=== PATIENT | female | born 1960 | race Caucasian/White ===

== ENCOUNTER 2023-09-03 18:40 | Emergency (ER) | payer OTHER ==
[~2023-09-03] VITALS: Ht 162.5 cm; Wt 86.2 kg
[2023-09-03] MEDS ORDERED: methylPREDNISolone sod succ 125 MG VIAL IV ONE (19:00)
[2023-09-03] MEDS ORDERED: Albuterol Sulf/Ipratropium 3 ML VIAL NEB ONE (19:00)
[2023-09-03 19:16] LABS: BASO # 0.1 10*3/uL (0.0-0.1); BASO % 0.7 % (0.0-1.0); EOS # 0.3 10*3/uL (0.0-0.4); EOS % 3.7 % (1.0-4.0); HEMATOCRIT 37.2 % (37.0-47.0); LYMPH % 41.2 % (27.0-41.0); MEAN CELL VOLUME 90.1 fl (81.0-99.0); MEAN CORPUSCULAR HGB 29.1 pg (27.0-31.0); MEAN CORPUSCULAR HGB CONC 32.3 g/dl (33.0-37.0); MEAN PLATELET VOLUME 10.3 fl (9.6-12.3); MONO # 0.9 10*3/uL (0.1-1.0); MONO % 11.6 % (3.0-9.0); NEUT # 3.1 10*3/uL (2.3-7.9); NEUT % 42.8 % (47.0-73.0); PLATELET COUNT AUTOMATED 256 10*3/uL (130-400); RED BLOOD COUNT 4.13 10*6/uL (4.10-5.10); RED CELL DISTRI WIDTH 13.3 % (0-14.5); WHITE BLOOD COUNT 7.3 10*3/uL (4.8-10.8)
[2023-09-03 19:32] LABS: POTASSIUM 4.2 mmol/L (3.4-5.1); TOTAL PROTEIN 7.4 gm/dL (6.0-8.0)
[2023-09-03] MEDS ORDERED: SODIUM CHLORIDE 0.9% 1,000 ML IV ONE (19:50)
[2023-09-03] MEDS ORDERED: AVPAK AZITHROM250 M1 PO (20:45)
[2023-09-03] MEDS ORDERED: PREDNISONE50 MG PO (20:45)
[2023-09-03] MEDS ORDERED: AZITHROMYCIN 250 MG TAB PO ONE (20:45)
== END 2023-09-03 22:21 | disposition home or self-care (01) ==
LOC: ED 18:40
PROVIDERS: Physician Assistant Medical
DX: J44.1 Chronic obstructive pulmonary disease with (acute) exacerbation (principal); Z88.2 Allergy status to sulfonamides; Z88.5 Allergy status to narcotic agent; Z88.8 Allergy status to other drugs, medicaments and biological substances

== ENCOUNTER 2024-04-29 17:08 | Emergency (ER) | payer OTHER ==
[~2024-04-29] VITALS: Ht 162.5 cm; Wt 95.7 kg
[~2024-04-29 17:08] MED LIST: AVPAK AZITHROM250 M1 PO; PREDNISONE50 MG PO
[2024-04-29] MEDS ORDERED: IOHEXOL 300 MG/ML 100 ML VIAL IV ONE (17:45)
[2024-04-29 18:07] LABS: BASO # 0.1 10*3/uL (0.0-0.1); BASO % 0.6 % (0.0-1.0); EOS # 0.2 10*3/uL (0.0-0.4); EOS % 1.6 % (1.0-4.0); HEMATOCRIT 39.7 % (37.0-47.0); MEAN CELL VOLUME 87.3 fl (81.0-99.0); MEAN CORPUSCULAR HGB 28.4 pg (27.0-31.0); MEAN CORPUSCULAR HGB CONC 32.5 g/dl (33.0-37.0); MEAN PLATELET VOLUME 10.8 fl (9.6-12.3); MONO % 10.7 % (3.0-9.0); NEUT # 5.9 10*3/uL (2.3-7.9); NEUT % 63.1 % (47.0-73.0); PLATELET COUNT AUTOMATED 300 10*3/uL (130-400); RED BLOOD COUNT 4.55 10*6/uL (4.10-5.10); WHITE BLOOD COUNT 9.4 10*3/uL (4.8-10.8)
[2024-04-29] MEDS ORDERED: IOHEXOL 300 MG/ML 100 ML VIAL ONE (18:08)
[2024-04-29 18:20] LABS: ACT PARTIAL THROMBO TIME 28.7 SECONDS (20.0-32.1)
[2024-04-29 18:35] LABS: ALKALINE PHOSPHATASE 125 U/L (46-116); BUN 14 mg/dl (9-23); CHLORIDE 105 mmol/L (98-107); POTASSIUM 4.4 mmol/L (3.4-5.1); TOTAL PROTEIN 7.3 gm/dL (6.0-8.0)
[2024-04-29 18:36] LABS: SGPT/ALT < 7 U/L (5-49)
== END 2024-04-29 20:15 | disposition home or self-care (01) ==
LOC: ED 17:08
PROVIDERS: Emergency Medicine
DX: J90 Pleural effusion, not elsewhere classified (principal); I12.9 Hypertensive chronic kidney disease with stage 1 through stage 4 chronic kidney disease, or unspecified chronic kidney disease; N18.31 Chronic kidney disease, stage 3a; Z85.22 Personal history of malignant neoplasm of nasal cavities, middle ear, and accessory sinuses; Z88.2 Allergy status to sulfonamides; Z88.5 Allergy status to narcotic agent; Z88.8 Allergy status to other drugs, medicaments and biological substances; Z79.899 Other long term (current) drug therapy; Z86.711 Personal history of pulmonary embolism

== ENCOUNTER 2024-07-08 00:51 | Emergency (ER) | payer OTHER ==
[~2024-07-08] VITALS: Ht 167.6 cm; Wt 81.6 kg
== END 2024-07-08 02:52 | disposition home or self-care (01) ==
LOC: ED 00:51
DX: J10.1 Influenza due to other identified influenza virus with other respiratory manifestations (principal); Z20.822 Contact with and (suspected) exposure to COVID-19; J90 Pleural effusion, not elsewhere classified; Z88.2 Allergy status to sulfonamides; Z88.5 Allergy status to narcotic agent; Z88.8 Allergy status to other drugs, medicaments and biological substances; Z98.890 Other specified postprocedural states

== ENCOUNTER 2024-08-05 17:41 | Emergency (ER) | payer OTHER ==
[~2024-08-05] VITALS: Ht 162.5 cm; Wt 95.3 kg
[2024-08-05] MEDS ORDERED: SODIUM CHLORIDE 0.9% 1,000 ML IV ONE (19:15)
[2024-08-05] MEDS ORDERED: Ondansetron Hydrochloride 4 MG/2 ML VIAL IV ONE (19:15)
[2024-08-05 19:45] LABS: BASO % 0.1 % (0.0-1.0); EOS % 0.1 % (1.0-4.0); HEMATOCRIT 40.3 % (37.0-47.0); MEAN CELL VOLUME 86.1 fl (81.0-99.0); MEAN CORPUSCULAR HGB 27.4 pg (27.0-31.0); MEAN CORPUSCULAR HGB CONC 31.8 g/dl (33.0-37.0); MONO # 0.9 10*3/uL (0.1-1.0); MONO % 6.3 % (3.0-9.0); NEUT # 11.6 10*3/uL (2.3-7.9); NEUT % 83.5 % (47.0-73.0); PLATELET COUNT AUTOMATED 298 10*3/uL (130-400); RED BLOOD COUNT 4.68 10*6/uL (4.10-5.10); WHITE BLOOD COUNT 13.9 10*3/uL (4.8-10.8)
[2024-08-05] MEDS ORDERED: PRILOSEC20 M1 PO (20:00)
[2024-08-05] MEDS ORDERED: NEURONTIN300 MG PO (20:01)
[2024-08-05] MEDS ORDERED: LYVISPAH10 M1 PO (20:01)
[2024-08-05] MEDS ORDERED: LEXAPRO5 M1 PO (20:02)
[2024-08-05] MEDS ORDERED: TRELEGY ELLIPT1 EAC1 INH (20:02)
[2024-08-05] MEDS ORDERED: ELIQUIS5 M1 PO (20:03)
[2024-08-05] MEDS ORDERED: ALBUTEROL S5 MG/1 ML INH (20:04)
[2024-08-05 20:06] LABS: POTASSIUM 3.9 mmol/L (3.4-5.1); TOTAL PROTEIN 7.7 gm/dL (6.0-8.0)
[2024-08-05] MEDS ORDERED: OXYCODONE HCL10 M2 PO (20:06)
[2024-08-05 20:17] LABS: BILIRUBIN Negative (Negative); BLOOD Negative (Negative); CLARITY Cloudy (Clear); COLOR Dark Yellow (Yellow); GLUCOSE Negative (Negative); KETONE Trace (Negative); LEUKO ESTERASE Trace (Negative); NITRITE Negative (Negative); SPECIFIC GRAVITY 1.025 (1.001-1.030)
[2024-08-05 20:37] LABS: BACTERIA 1+; EPITHELIAL CELLS 16-20; MUCOUS 1+; RBC 0-2 rbc/hpf (0-2)
[2024-08-05] MEDS ORDERED: Promethazine Hydrochloride 25 MG/ML VIAL IM ONE (21:50)
[2024-08-05] MEDS ORDERED: Phenergan25 MG PO (23:13)
[2024-08-05] MEDS ORDERED: CIPRO500 MG PO (23:13)
[2024-08-05] MEDS ORDERED: Promethazine Hydrochloride 25 MG TAB PO ONE (23:15)
[2024-08-05] MEDS ORDERED: Ciprofloxacin Hydrochloride 500 MG TAB PO ONE (23:15)
== END 2024-08-05 23:17 | disposition home or self-care (01) ==
LOC: ED 17:41
PROVIDERS: Nurse Practitioner Family
DX: A08.4 Viral intestinal infection, unspecified (principal); Z20.822 Contact with and (suspected) exposure to COVID-19; N39.0 Urinary tract infection, site not specified; J44.9 Chronic obstructive pulmonary disease, unspecified; N18.31 Chronic kidney disease, stage 3a; Z88.2 Allergy status to sulfonamides; Z88.5 Allergy status to narcotic agent; Z88.8 Allergy status to other drugs, medicaments and biological substances

== ENCOUNTER 2025-01-05 22:11 | Inpatient (IN) | payer OTHER ==
[~2025-01-05] VITALS: Ht 167.6 cm; Wt 100.9 kg
[~2025-01-05 22:11] MED LIST changes: +ALBUTEROL S5 MG/1 ML INH; +CIPRO500 MG PO; +ELIQUIS5 M1 PO; +LEXAPRO5 M1 PO; +LYVISPAH10 M1 PO; +NEURONTIN300 MG PO; +OXYCODONE HCL10 M2 PO; +PRILOSEC20 M1 PO; +Phenergan25 MG PO; +TRELEGY ELLIPT1 EAC1 INH
[2025-01-05] MEDS ORDERED: SODIUM CHLORIDE 0.9% 1,000 ML IV ONE (22:25)
[2025-01-05] MEDS ORDERED: Ondansetron Hydrochloride 4 MG/2 ML VIAL IV ONE (22:25)
[2025-01-05 22:30] VITALS: BP 139/54
[2025-01-05 23:09] LABS: BASO # 0.1 10*3/uL (0.0-0.1); BASO % 0.4 % (0.0-1.0); EOS # 0.1 10*3/uL (0.0-0.4); EOS % 0.4 % (1.0-4.0); MEAN CELL VOLUME 88.0 fl (81.0-99.0); MEAN CORPUSCULAR HGB 28.5 pg (27.0-31.0); MEAN PLATELET VOLUME 10.5 fl (9.6-12.3); MONO # 0.9 10*3/uL (0.1-1.0); MONO % 5.4 % (3.0-9.0); NEUT # 14.6 10*3/uL (2.3-7.9); NEUT % 86.6 % (47.0-73.0); NUCLEATED RED BLOOD CELL 0.0 % (0.0-0.0); NUCLEATED RED BLOOD CELL 0.0 10*3/uL (0.0-0.0); PLATELET COUNT AUTOMATED 286 10*3/uL (130-400); RED CELL DISTRI WIDTH 14.4 % (0-14.5)
[2025-01-05 23:29] LABS: BUN 15.0 mg/dl (9-23); SGPT/ALT 18.0 U/L (5-49)
[2025-01-06] MEDS ORDERED: Metoclopramide Hydrochloride 10 MG/2 ML VIAL IV ONE (00:45)
[2025-01-06] MEDS ORDERED: diphenhydrAMINE hydrochloride 50 MG/ML VIAL IV ONE (00:45)
[2025-01-06] MEDS ORDERED: Ondansetron Hydrochloride 4 MG/2 ML VIAL IV PRN (01:35)
[2025-01-06] MEDS ORDERED: Dicyclomine Hydrochloride 10 MG CAP PO PRN (01:40)
[2025-01-06] MEDS ORDERED: SODIUM CHLORIDE 0.9% 1,000 ML IV ONE (01:40)
[2025-01-06] MEDS ORDERED: FARXIGA5 M1 PO (01:44)
[2025-01-06] MEDS ORDERED: Promethazine Hydrochloride 25 MG TAB PO PRN (01:45)
[2025-01-06 01:48] LABS: BILIRUBIN Negative (Negative); BLOOD 1+ (Negative); CLARITY Cloudy (Clear); COLOR Yellow (Yellow); KETONE Negative (Negative); LEUKO ESTERASE 3+ (Negative); NITRITE Positive (Negative); PH 6.0 (4.5-8.0); SPECIFIC GRAVITY 1.010 (1.001-1.030); UROBILINOGEN 0.2 E.U./dl (0.0-1.0)
[2025-01-06 01:55] LABS: BACTERIA 3+; WBC TNTC wbc/hpf (0-5)
[2025-01-06 06:04] LABS: MEAN CELL VOLUME 89.5 fl (81.0-99.0); MEAN CORPUSCULAR HGB 28.4 pg (27.0-31.0); MEAN PLATELET VOLUME 11.0 fl (9.6-12.3); NUCLEATED RED BLOOD CELL 0.0 % (0.0-0.0); NUCLEATED RED BLOOD CELL 0.0 10*3/uL (0.0-0.0); PLATELET COUNT AUTOMATED 236 10*3/uL (130-400); RED CELL DISTRI WIDTH 14.3 % (0-14.5)
[2025-01-06 06:11] LABS: BUN 15.0 mg/dl (9-23); FREE T4 0.96 ng/dl (0.89-1.76); LDL CHOLESTEROL 61.0 mg/dL (9-159)
[2025-01-06 06:20] LABS: MANUAL DIFF REFLEX YES
[2025-01-06 07:01] LABS: BASOPHILS 1 % (0-1)
[2025-01-06 07:02] LABS: PLATELET SUFFICIENCY NORMAL (NORMAL)
[2025-01-06 07:51] VITALS: BP 109/55
[2025-01-06 08:45] LABS: VITAMIN D, 25-HYDROXY 25.9 ng/mL (30-100)
[2025-01-06] MEDS ORDERED: BACLOFEN 10 MG TAB PO SCH ×2 (10:00→14:00)
[2025-01-06] MEDS ORDERED: TRELEGY INH SCH (10:00)
[2025-01-06] MEDS ORDERED: GABAPENTIN 300 MG CAP PO SCH ×2 (10:00→14:00)
[2025-01-06] MEDS ORDERED: APIXABAN 5 MG TAB PO SCH ×2 (10:00→22:00)
[2025-01-06] MEDS ORDERED: CIPROFLOXACIN 200 ML IV SCH (10:00)
[2025-01-06] MEDS ORDERED: ESCITALOPRAM OXALATE 10 MG TAB PO SCH (10:00)
[2025-01-06 11:55] VITALS: BP 107/61
[2025-01-06 12:00] VITALS: BP 107/61
[2025-01-06] MEDS ORDERED: OXYCODONE HCL (IR) 10 MG TABLET PO SCH (12:00)
[2025-01-06] MEDS ORDERED: DOCUSATE SODIUM 100 MG CAP PO PRN (15:10)
[2025-01-06 16:00] VITALS: BP 127/68
[2025-01-06 20:00] VITALS: BP 117/58
[2025-01-07] VITALS: BP 115/44; BP 117/70
[2025-01-07] MEDS ORDERED: BARIUM SULFATE 2% 450 ML BOT PO SCH (03:00)
[2025-01-07 07:01] LABS: MEAN CELL VOLUME 90.1 fl (81.0-99.0); MEAN CORPUSCULAR HGB 28.5 pg (27.0-31.0); MEAN PLATELET VOLUME 11.0 fl (9.6-12.3); NUCLEATED RED BLOOD CELL 0.0 % (0.0-0.0); NUCLEATED RED BLOOD CELL 0.0 10*3/uL (0.0-0.0); PLATELET COUNT AUTOMATED 229 10*3/uL (130-400); RED CELL DISTRI WIDTH 14.1 % (0-14.5)
[2025-01-07 07:03] LABS: MANUAL DIFF REFLEX YES
[2025-01-07 07:26] LABS: BUN 17.0 mg/dl (9-23)
[2025-01-07 07:44] LABS: BASOPHILS 1 % (0-1); PLATELET SUFFICIENCY NORMAL (NORMAL)
[2025-01-07 07:45] LABS: VACUOLATION OF NEUTROPHILS SLIGHT
[2025-01-07 08:00] VITALS: BP 100/61
[2025-01-07 11:53] VITALS: BP 117/55
[2025-01-07 16:00] VITALS: BP 107/52
[2025-01-07 20:00] VITALS: BP 118/52
[2025-01-08] VITALS: BP 105/68
[2025-01-08 06:34] LABS: BASO # 0.0 10*3/uL (0.0-0.1); BASO % 0.5 % (0.0-1.0); EOS # 0.3 10*3/uL (0.0-0.4); EOS % 3.1 % (1.0-4.0); MEAN CELL VOLUME 90.5 fl (81.0-99.0); MEAN CORPUSCULAR HGB 28.2 pg (27.0-31.0); MEAN PLATELET VOLUME 11.2 fl (9.6-12.3); MONO # 1.5 10*3/uL (0.1-1.0); MONO % 18.0 % (3.0-9.0); NEUT # 4.6 10*3/uL (2.3-7.9); NEUT % 57.3 % (47.0-73.0); NUCLEATED RED BLOOD CELL 0.0 % (0.0-0.0); NUCLEATED RED BLOOD CELL 0.0 10*3/uL (0.0-0.0); PLATELET COUNT AUTOMATED 216 10*3/uL (130-400); RED CELL DISTRI WIDTH 14.0 % (0-14.5)
[2025-01-08 07:02] LABS: BUN 14.0 mg/dl (9-23); SGPT/ALT 13.0 U/L (5-49)
[2025-01-08 08:00] VITALS: BP 95/75
[2025-01-08 12:00] VITALS: BP 137/56
[2025-01-08 16:00] VITALS: BP 119/63
[2025-01-08 20:00] VITALS: BP 120/67
[2025-01-09] VITALS: BP 136/64
[2025-01-09 04:57] VITALS: BP 106/56
[2025-01-09 05:56] LABS: MEAN CELL VOLUME 89.2 fl (81.0-99.0); MEAN CORPUSCULAR HGB 28.5 pg (27.0-31.0); MEAN PLATELET VOLUME 11.2 fl (9.6-12.3); NUCLEATED RED BLOOD CELL 0.0 % (0.0-0.0); NUCLEATED RED BLOOD CELL 0.0 10*3/uL (0.0-0.0); PLATELET COUNT AUTOMATED 231 10*3/uL (130-400); RED CELL DISTRI WIDTH 14.1 % (0-14.5)
[2025-01-09 06:09] LABS: BUN 15.0 mg/dl (9-23); SGPT/ALT 16.0 U/L (5-49)
[2025-01-09 06:11] LABS: MANUAL DIFF REFLEX YES
[2025-01-09 06:56] LABS: PLATELET SUFFICIENCY NORMAL (NORMAL)
[2025-01-09 08:00] VITALS: BP 95/50
[2025-01-09 12:00] VITALS: BP 106/56; BP 96/56
[2025-01-09 16:00] VITALS: BP 123/69
[2025-01-09 20:00] VITALS: BP 115/80
[2025-01-09] MEDS ORDERED: NYSTATIN 15 GM BOT T SCH (22:00)
[2025-01-10] VITALS: BP 125/62
[2025-01-10 04:41] VITALS: BP 125/57
[2025-01-10 05:22] LABS: BUN 13.0 mg/dl (9-23); SGPT/ALT 18.0 U/L (5-49)
[2025-01-10 06:04] LABS: BASO # 0.0 10*3/uL (0.0-0.1); BASO % 0.6 % (0.0-1.0); EOS # 0.2 10*3/uL (0.0-0.4); EOS % 3.3 % (1.0-4.0); MEAN CELL VOLUME 90.6 fl (81.0-99.0); MEAN CORPUSCULAR HGB 28.1 pg (27.0-31.0); MEAN PLATELET VOLUME 11.7 fl (9.6-12.3); MONO # 1.1 10*3/uL (0.1-1.0); MONO % 17.1 % (3.0-9.0); NEUT # 3.0 10*3/uL (2.3-7.9); NEUT % 46.5 % (47.0-73.0); NUCLEATED RED BLOOD CELL 0.0 % (0.0-0.0); NUCLEATED RED BLOOD CELL 0.0 10*3/uL (0.0-0.0); PLATELET COUNT AUTOMATED 232 10*3/uL (130-400); RED CELL DISTRI WIDTH 14.1 % (0-14.5)
[2025-01-10 08:00] VITALS: BP 123/63
[2025-01-10] MEDS ORDERED: MAGNESIUM CITRATE 296 ML BOT PO ONE (14:34)
[2025-01-10 16:00] VITALS: BP 130/73
[2025-01-10 20:00] VITALS: BP 124/62
[2025-01-11] VITALS: BP 117/59
[2025-01-11 05:24] LABS: BUN 10.0 mg/dl (9-23)
[2025-01-11 08:00] VITALS: BP 123/69
[2025-01-11] MEDS ORDERED: MILK OF MA400 MG/53 PO (12:14)
[2025-01-11] MEDS ORDERED: OMNICEF300 MG PO (12:14)
== END 2025-01-11 15:25 | disposition home or self-care (01) | DRG 372 ==
LOC: ED 22:11 → EDHOLD 22:53 → 4E 01-06 10:56
PROVIDERS: Family Medicine; Nurse Practitioner Family; ADMIT Internal Medicine; ATTEND Internal Medicine
DX: A04.9 Bacterial intestinal infection, unspecified (principal); A15.9 Respiratory tuberculosis unspecified; N30.01 Acute cystitis with hematuria; I27.82 Chronic pulmonary embolism; N12 Tubulo-interstitial nephritis, not specified as acute or chronic; E87.20 Acidosis, unspecified; N17.9 Acute kidney failure, unspecified; E86.0 Dehydration; N18.32 Chronic kidney disease, stage 3b; K22.2 Esophageal obstruction; K21.9 Gastro-esophageal reflux disease without esophagitis; K59.00 Constipation, unspecified; F41.9 Anxiety disorder, unspecified; G89.29 Other chronic pain; K76.0 Fatty (change of) liver, not elsewhere classified; D72.825 Bandemia; R73.9 Hyperglycemia, unspecified; Z90.89 Acquired absence of other organs; Z88.0 Allergy status to penicillin; Z88.2 Allergy status to sulfonamides; Z91.041 Radiographic dye allergy status; Z88.8 Allergy status to other drugs, medicaments and biological substances; Z90.710 Acquired absence of both cervix and uterus; Z90.721 Acquired absence of ovaries, unilateral; Z90.49 Acquired absence of other specified parts of digestive tract; Z85.118 Personal history of other malignant neoplasm of bronchus and lung; Z79.899 Other long term (current) drug therapy